=== PATIENT | female | born 1970 | race Caucasian/White ===

== ENCOUNTER → 2016-08-13 | Outpatient (CLI) | payer BC ==
--- NOTE | 2016-08-13 13:11 | KCIC ---
Bilateral digital screening mammograms with CAD: HISTORY Routine screening. COMPARISON Comparison is made to previous studies dated back to 07/30/2013. FINDINGS Breast density category B. The skin and nipples show no abnormalities. No abnormal lymph nodes are seen in the axilla. The breast parenchyma shows scattered fibroglandular density. The parenchymal density however bilaterally has increased since previous exams. This may reflect weight loss or hormonal changes. There are no other dominant masses, suspicious calcifications or architectural distortions. IMPRESSION Increased parenchymal density bilaterally. This may be related to weight loss or hormonal changes. Recommend clinical correlation. Recommend further evaluation of the areas of increased parenchymal density with ultrasound to exclude underlying lesions. This study was interpreted with the benefit of Computerized Aided Detection (CAD). Mammography is not 100% sensitive in detecting breast cancer. Therefore, a self breast exam and a clinical breast exam are very important. A negative mammogram does not negate a clinically suspicious finding and should not result in a delay in biopsying a clinically suspicious abnormality. BI-RADS category 0: Incomplete. Ultrasound followup is recommended. This patient's information has been entered into a reminder system for the patient to be notified with the results of this examination and a target date for her next mammograms. Electronically signed by: Joanna Caldwell MD (Aug 13, 2016 13:10:14)
== END | disposition home or self-care (01) ==
LOC: KCIC MAMMO 11:01
PROVIDERS: ATTEND Family Medicine
DX: Z12.31 Encounter for screening mammogram for malignant neoplasm of breast (principal)
CPT/HCPCS: G0202; 77067

== ENCOUNTER → 2016-08-16 | Outpatient (CLI) | payer BC ==
--- NOTE | 2016-08-16 14:32 | RAD ---
Bilateral breast ultrasound, 08/16/2016: History: Abnormal screening mammograms The recent mammograms demonstrated diffusely increased densities in both breasts without evidence of a discrete mass. Sonographic evaluation of both breasts demonstrate normal heterogeneous fibroglandular shadows. No cystic or solid breast lesion is seen. The patient does report interval weight loss which may be contributing to the mammographic changes. IMPRESSION: The bilateral breast ultrasound reveals no abnormality. Clinical and routine mammographic surveillance is suggested. BI-RADS 2-benign findings
== END | disposition home or self-care (01) ==
LOC: US 13:53
PROVIDERS: ATTEND Family Medicine
DX: R92.8 Other abnormal and inconclusive findings on diagnostic imaging of breast (principal)
CPT/HCPCS: 76641